=== PATIENT | female | born 1960 | race African-American/Black ===

== ENCOUNTER → 2016-09-30 | Outpatient (CLI) | payer OTHER ==
[~2016-09-30] MED LIST: ADVA250A INH; AMLO10TA2 PO; CYCL1TAB29 PO; METH125I2 IM; NAPR500T PO; TRAZ100T4 PO; VENTAER INH
== END ==
LOC: CLAB 07:48
PROVIDERS: ATTEND Family Medicine
DX: R10.812 Left upper quadrant abdominal tenderness (principal)
CPT/HCPCS: 36415; 83690

== ENCOUNTER 2017-04-10 12:40 | Emergency (ER) | payer OTHER ==
[~2017-04-10] VITALS: Ht 172.7 cm; Wt 45.0 kg
[~2017-04-10 12:40] MED LIST changes: -METH125I2 IM
[2017-04-10 12:50] VITALS: BP 132/87; PULSE 82; RESP 16; TEMP 97.7; O2SAT 100
--- NOTE | 2017-04-10 13:11 | PD ---
HPI Chief Complaint: Dizziness Time Seen by Provider: 15:40 Travel History International Travel<30 days: No Contact w/Intl Traveler<30days: No Traveled to known affect area: No History of Present Illness HPI 57- year old female brought by [facility] to the ED presenting with shortness of breath. Per nurse, [facility] was called and when they found her she had a heart rate of 140 and rapid breathing. Her vitals here are normal. She reports she has had trouble breathing for the past 3 days related to anxiety. She denies any triggering event to her anxiety. She denies any chest pain, N/V/D, constipation , or difficulty with urination. Patient has a history of COPD, Grave's Disease, and alcoholism. She denies any pain at this time. She takes nothing for anxiety. She does have a history of alcohol abuse and does appear to be intoxicated at this time. Shortness of breath with exertion. Otherwise she has no symptoms. No chest pain. No congestion. She's been compliant with her medications per patient. PFSH Past Medical History Arthritis: Yes Asthma: No Autoimmune Disease: No Blood Disorders: No Anxiety: Yes Depression: Yes Heart Rhythm Problems: No Cancer: No Cardiovascular Problems: Yes High Cholesterol: No Chemotherapy: No Chest Pain: Yes Congestive Heart Failure: No COPD: No Cerebrovascular Accident: No Diabetes: No Diminished Hearing: No Endocrine: No GERD: No Glaucoma: No Gout: Yes Genitourinary: No Headaches: Yes Hepatitis: No Hiatal Hernia: No Hypertension: Yes Immune Disorder: No Implanted Vascular Access Dvce: Yes Kidney Stones: No Musculoskeletal: Yes Neurologic: Yes Psychiatric: Yes Reproductive: No Respiratory: Yes Immunizations Current: Yes Migraines: Yes Myocardial Infarction: No Radiation Therapy: No Renal Failure: No Seizures: No Sickle Cell Disease: No Sleep Apnea: No Thyroid Disease: No Ulcer: No ?: Not Menopausal: Yes : 7 Para: 5 Tubal Ligation: Yes Past Surgical History Abdominal Surgery: Yes (ABDOMINAL HERNIA) AICD: No Appendectomy: No Arteriovenous Shunt: No Body Medical Devices: STATES SHE HAS A "PATCH" IN ABDOMEN FROM HERNIA SURGERY Cholecystectomy: No Ear Surgery: No Endocrine Surgery: No Eye Surgery: No Genitourinary Surgery: No Gynecologic Surgery: Yes (BREAST MASS REMOVED-LEFT ) Insulin Pump: No Joint Replacement: No Oral Surgery: No Pacemaker: No Thoracic Surgery: No Other Surgery: Yes (hernia repair ) Social History Alcohol Use: Yes (OCC) Tobacco Use: Yes (/2 PPD) Substance Use: No Allergies-Medications (Allergen,Severity, Reaction): Coded Allergies: No Known Allergies (Verified , 04/10/17) Reported Meds & Prescriptions Reported Meds & Active Scripts Active Flexeril (Cyclobenzaprine HCl) 10 Mg Tab 10 Mg PO TID Amlodipine (Amlodipine Besylate) 10 Mg Tab 10 Mg PO DAILY Ventolin Hfa 18 GM Inh (Albuterol Sulfate) 90 Mcg/Act Aer 2 Puff INH Q4-6H PRN Advair Diskus Inh (Fluticasone-Salmeterol Inh) 250-50 Mcg/Blist Aer 1 Puff INH BID Rinse mouth after use. Trazodone (Trazodone HCl) 100 Mg Tab 100 Mg PO HS Reported Naproxen 500 Mg Tab 500 Mg PO BID Review of Systems General / Constitutional: No: Fever, Chills, Weight Gain, Weight Loss, Other Eyes: No: Diploplia, Blurred Vision, Photophobia, Drainage, Redness, Foreign Body Sensation, Pain, Tearing, Blind Spots, Visual changes, Blindness, Other HENT: No: Headaches, Vertigo, Lightheadedness, Sore Throat, Rhinitis, Rhinorrhea, Congestion, Nosebleed, Neck Stiffness, Neck Pain, Masses, Gingival Bleeding, Dental Difficulties, Ear Discharge, Earache, Other Cardiovascular: No: Chest Pain or Discomfort, Palpitations, Irregular Rhythm, Tachycardia, Diaphoresis, Syncope, Dyspnea on exertion, Varicosities, Edema, Cyanosis, Varicosities, Phlebitis, Claudication, Other Respiratory: Positive: Shortness of Breath, No: Cough, Wheezing, Sneezing, Orthopnea, Hemoptysis, Stridor, Night Sweats, Pleuritic Pain, Other Gastrointestinal: No: Nausea, Vomiting, Diarrhea, Abdominal Pain, Hematemesis, Hematochezia, Constipation, Changes in Bowel Habits, Indigestion, Dysphagia, Loss of Appetite, Other Genitourinary: No: Urgency, Frequency, Dysuria, Nocturia, Hematuria, Decreased Urinary Output, Oliguria, Hesitancy, Dribbling, Incontinence, Pelvic Pain, Flank Pain, Dyspareunia, Discharge, Dysmenorrhea, Menorrhagia, Metorrhagia, Vaginal Bleeding, Other Musculoskeletal: No: Myalgias, Arthralgias, Limited ROM, Weakness, Cramping, Edema, Pain, Atrophy, Other Skin: No Rash, No Itching, No Dryness, No Lumps, No Hives, No Change in Pigmentation, No Change in nails, No Alopecia, No Lesions, No Breast Lumps, No Breast Tenderness, No Breast Swelling, No Other Neurologic: No: Weakness, Dizziness, Syncope, Focal Abnormalities, Coordination Problem, Tremor, Ataxia, Headache, Change in Mentation, Slurred Speech, Paresthesia, Incontinence, Seizures, Sensory Disturbance, Other Psychiatric: Positive: Anxiety Physical Exam Narrative GENERAL: SKIN: Warm and dry. HEAD: Atraumatic. Normocephalic. EYES: Pupils equal and round. No scleral icterus. No injection or drainage. ENT: No nasal bleeding or discharge. Mucous membranes pink and moist. Tongue is midline. No uvula deviation. NECK: Trachea midline. No JVD. CARDIOVASCULAR: Regular rate and rhythm. No murmurs, S3, S4. RESPIRATORY: No accessory muscle use. Clear to auscultation. Breath sounds equal bilaterally. GASTROINTESTINAL: Abdomen soft, non-tender, nondistended. Hepatic and splenic margins not palpable. MUSCULOSKELETAL: Extremities without clubbing, cyanosis, or edema. No obvious deformities. Range of motion of the upper and lower extremities bilaterally. 2 + pulses bilaterally. NEUROLOGICAL: Awake and alert. No obvious cranial nerve deficits. Motor grossly within normal limits. Five out of 5 muscle strength in the arms and legs. Normal speech. PSYCHIATRIC: Patient appears relaxed until beginning physical exam. Data Data Last Documented VS Vital Signs Date Time Temp Pulse Resp B/P Pulse Ox O2 Delivery O2 Flow Rate FiO2 04/10/17 13:29 100 Room Air 04/10/17 12:54 82 18 04/10/17 12:50 97.7 132/87 Orders Electrocardiogram (04/10/17 13:00) Complete Blood Count With Diff (04/10/17 13:00) Basic Metabolic Panel (Bmp) (04/10/17 13:00) Troponin I (04/10/17 13:00) Urinalysis - C+S If Indicated (04/10/17 13:00) Magnesium (Mg) (04/10/17 13:00) Thyroid Stimulating Hormone (04/10/17 13:00) Chest, Single Ap (04/10/17 13:00) Iv Access Insert/Monitor (04/10/17 13:00) Ecg Monitoring (04/10/17 13:00) Oximetry (04/10/17 13:00) Lorazepam Inj (Ativan Inj) (04/10/17 13:15) Alcohol (Ethanol) (04/10/17 13:31) Methylprednisolone So Succ Inj (Solumedr (04/10/17 13:45) Albuterol Neb (Albuterol Neb) (04/10/17 13:45) Urine Culture (04/10/17 13:43) Thiamine Inj (Thiamine Inj) (04/10/17 15:45) Labs Laboratory Tests Test 04/10/17 04/10/17 13:30 13:43 White Blood Count 4.8 TH/MM3 Red Blood Count 3.35 MIL/MM3 Hemoglobin 12.0 GM/DL Hematocrit 34.0 % Mean Corpuscular Volume 101.7 FL Mean Corpuscular Hemoglobin 35.9 PG Mean Corpuscular Hemoglobin 35.3 % Concent Red Cell Distribution Width 15.3 % Platelet Count 164 TH/MM3 Mean Platelet Volume 8.4 FL Neutrophils (%) (Auto) 66.8 % Lymphocytes (%) (Auto) 19.5 % Monocytes (%) (Auto) 11.8 % Eosinophils (%) (Auto) 0.6 % Basophils (%) (Auto) 1.3 % Neutrophils # (Auto) 3.2 TH/MM3 Lymphocytes # (Auto) 0.9 TH/MM3 Monocytes # (Auto) 0.6 TH/MM3 Eosinophils # (Auto) 0.0 TH/MM3 Basophils # (Auto) 0.1 TH/MM3 CBC Comment DIFF FINAL Differential Comment Sodium Level 131 MEQ/L Potassium Level 3.4 MEQ/L Chloride Level 96 MEQ/L Carbon Dioxide Level 22.2 MEQ/L Anion Gap 13 MEQ/L Blood Urea Nitrogen 2 MG/DL Creatinine 0.54 MG/DL Estimat Glomerular Filtration 140 ML/MIN Rate Random Glucose 72 MG/DL Calcium Level 8.6 MG/DL Magnesium Level 2.0 MG/DL Troponin I LESS THAN 0.02 NG/ML Thyroid Stimulating Hormone 0.556 uIU/ML 3rd Gen Ethyl Alcohol Level 279 MG/DL Urine Color LIGHT-YELLOW Urine Turbidity CLEAR Urine pH 5.5 Urine Specific [place] 1.002 Urine Protein NEG mg/dL Urine Glucose (UA) NEG mg/dL Urine Ketones TRACE mg/dL Urine Occult Blood NEG Urine Nitrite POS Urine Bilirubin NEG Urine Urobilinogen LESS THAN 2.0 MG/DL Urine Leukocyte Esterase NEG Urine RBC LESS THAN 1 /hpf Urine WBC LESS THAN 1 /hpf Urine Squamous Epithelial 1 /hpf Cells Microscopic Urinalysis Comment CULTURE INDICATED MDM Medical Decision Making Medical Screen Exam Complete: Yes Emergency Medical Condition: Yes Medical Record Reviewed: Yes Interpretation(s) CBC & BMP Diagram 04/10/17 13:30 troponin and CKMB negative Last Impressions Chest X-Ray 04/10/17 1300 Signed Impressions: Service Date/Time: April 13:41 - CONCLUSION: 1. Mild basilar atelectasis. Tortuous aorta. No significant effusion. Ritchie Corcoran MD EKG shows sinus rhythm with no sign of acute ischemia or arrhythmia read by me and attending. Alcohol level in the 200s Urine for the most part negative. Differential Diagnosis Anxiety Attack Hyperthyroidism COPD exacerbation alcohol intoxication Narrative Course 57-year-old male that presents to the ED for evaluation of shortness of breath. Patient was properly examined and was found to have signs and symptoms consistent with appears to be possible anxiety versus COPD. Patient does appear to be intoxicated and exam so history and exam is somewhat difficult. Imaging and labs were done. Everything came back negative except for alcohol level in the 200s. Case was discussed in my attending Dr Cobos who evaluated the patient and agrees with plan. At this time patient will be given a prescription for albuterol inhaler and prednisone. Told to follow with PCP. See ED worsening symptoms. She will be discharged once medically sober or she has a responsible adult who is not sober and can pick her up. Diagnosis Primary Impression: COPD (chronic obstructive pulmonary disease) Qualified Code: J41.0 - Simple chronic bronchitis Patient Instructions: General Instructions Additional Instructions: Take medications as prescribed. Stop drinking alcohol. Follow up with PCP. See ED if worsening symptoms. Med/Other Pt SpecificInfo: Prescription(s) given Disposition: 01 DISCHARGE HOME Condition: Stable Rah Willis Apr 10, 2017 13:11
[2017-04-10] MEDS ORDERED: LORazepam 2 MG/ML VIAL IV PUSH ONE (13:15)
[2017-04-10 13:29] VITALS: O2SAT 100
[2017-04-10] MEDS ORDERED: methylPREDNISolone SOD SUCC 125 MG/2 ML VIAL IV PUSH ONE (13:45)
[2017-04-10] MEDS ORDERED: RESP: ALBUTEROL 2.5 MG/3 ML NEB (SCH) INH ONE (13:45)
[2017-04-10 14:18] LABS: BLOOD, URINE NEG (NEG); GLUCOSE,URINE NEG (NEG); KETONE, URINE TRACE mg/dL (NEG); PH, URINE 5.5 (5.0-8.5); SQUAMOUS EPITHELIAL CELL URINE 1 /hpf (0-5); URINE COLOR LIGHT-YELLOW (YELLW/STRAW)
[2017-04-10 14:18] LABS: AUTOMATED NEUTROPHIL # 3.2 TH/MM3 (1.8-7.7); BASOPHIL # 0.1 TH/MM3 (0-0.2); BASOPHIL % 1.3 % (0.0-2.0); EOSINOPHIL % 0.6 % (0.0-4.0); HEMO FLAGS DIFF FINAL; LYMPH % 19.5 % (9.0-44.0); LYMPHOCYTE # 0.9 TH/MM3 (1.0-4.8); MEAN CELL VOLUME 101.7 FL (80.0-100.0); MEAN CORPUSCULAR HEMOGLOBIN 35.9 PG (27.0-34.0); MEAN CORPUSCULAR HGB CONC 35.3 % (32.0-36.0); MONO % 11.8 % (0.0-8.0); NEUT % 66.8 % (16.0-70.0); PLATELET COUNT 164 TH/MM3 (150-450); RED BLOOD COUNT 3.35 MIL/MM3 (4.00-5.30); RED CELL DISTRIBUTION WIDTH 15.3 % (11.6-17.2); WHITE BLOOD COUNT 4.8 TH/MM3 (4.0-11.0)
--- NOTE | 2017-04-10 14:18 | RADRPT ---
EXAM DATE/TIME: 04/10/2017 13:41 [facility] COMPARISON: CHEST SINGLE AP, September 04, 2016, 13:17. INDICATIONS : Short of breath and difficulty breathing. MEDICAL HISTORY : Hypertension. SURGICAL HISTORY : None. ENCOUNTER: Initial ACUITY: 3 days PAIN SCORE: 4/10 LOCATION: Bilateral chest FINDINGS: A single view of the chest demonstrates the lungs to be symmetrically aerated without evidence of mas s, infiltrate or effusion. Minimal basal atelectasis. Aorta is tortuous. CONCLUSION: 1. Mild basilar atelectasis. Tortuous aorta. No significant effusion. Ritchie Corcoran MD on April 10, 2017 at 14:15 Board Certified Radiologist. This report was verified electronically.
[2017-04-10 14:19] LABS: COMMENT (UR) CULTURE INDICATED; CULTURE IF INDICATED CULTURE INDICATED; NITRITE,URINE POS (NEG)
[2017-04-10 14:42] LABS: ANION GAP 13 MEQ/L (5-15); BICARBONATE 22.2 MEQ/L (21.0-32.0); BLOOD UREA NITROGEN 2 MG/DL (7-18); CHLORIDE 96 MEQ/L (98-107); GLOMERULAR FILTRATION RATE 140 ML/MIN (>89); POTASSIUM 3.4 MEQ/L (3.5-5.1); SODIUM (NA) 131 MEQ/L (136-145)
[2017-04-10] MEDS ORDERED: THIAMINE INJ 100 MG in SODIUM CHLORIDE 0.9% INJ 100 ML IV ONE (15:45)
[2017-04-10] MEDS ORDERED: CEPH-460 PO (15:48)
[2017-04-10] MEDS ORDERED: ALBUAER3 INH (15:48)
[2017-04-10] MEDS ORDERED: PRED20 PO (15:48)
--- NOTE | 2017-04-10 15:48 | PD ---
Physical Exam Narrative I, Dr. Cobos, have reviewed the advance practice practitioner's documentation and am in agreement, met with the patient face to face, made the diagnosis, and the medical decision making was done by me. *My assessment and Findings: Alcohol intoxication vs. COPD exacerbation vs. Pneumonia 57yo F with c/o sob when she walks. She is saturating at 100% on RA and does not appear distressed. Pt admits to drinking 5 beers. Denies any chest pain. States she is hungry and wants to eat. Currently no SOB. Lungs clear to auscultation bilaterally. Pt has history of COPD and alcohol abuse and was given methylprednisolone and albuterol neb. Labs reviewed, no leukocytosis. MCV 101.7, likely secondary to chronic alcohol abuse. Mild hyponatremia at 131. Troponin negative. TSH normal. Blood alcohol 279. UA showed positive nitrite. Will treat for UTI. CXR showed mild basilar atelectasis. No significant effusion. Data Data Last Documented VS Vital Signs Date Time Temp Pulse Resp B/P Pulse Ox O2 Delivery O2 Flow Rate FiO2 04/10/17 13:29 100 Room Air 04/10/17 12:54 82 18 04/10/17 12:50 97.7 132/87 Orders Electrocardiogram (04/10/17 13:00) Complete Blood Count With Diff (04/10/17 13:00) Basic Metabolic Panel (Bmp) (04/10/17 13:00) Troponin I (04/10/17 13:00) Urinalysis - C+S If Indicated (04/10/17 13:00) Magnesium (Mg) (04/10/17 13:00) Thyroid Stimulating Hormone (04/10/17 13:00) Chest, Single Ap (04/10/17 13:00) Iv Access Insert/Monitor (04/10/17 13:00) Ecg Monitoring (04/10/17 13:00) Oximetry (04/10/17 13:00) Lorazepam Inj (Ativan Inj) (04/10/17 13:15) Alcohol (Ethanol) (04/10/17 13:31) Methylprednisolone So Succ Inj (Solumedr (04/10/17 13:45) Albuterol Neb (Albuterol Neb) (04/10/17 13:45) Urine Culture (04/10/17 13:43) Thiamine Inj (Thiamine Inj) (04/10/17 15:45) Labs Laboratory Tests Test 04/10/17 04/10/17 13:30 13:43 White Blood Count 4.8 TH/MM3 Red Blood Count 3.35 MIL/MM3 Hemoglobin 12.0 GM/DL Hematocrit 34.0 % Mean Corpuscular Volume 101.7 FL Mean Corpuscular Hemoglobin 35.9 PG Mean Corpuscular Hemoglobin 35.3 % Concent Red Cell Distribution Width 15.3 % Platelet Count 164 TH/MM3 Mean Platelet Volume 8.4 FL Neutrophils (%) (Auto) 66.8 % Lymphocytes (%) (Auto) 19.5 % Monocytes (%) (Auto) 11.8 % Eosinophils (%) (Auto) 0.6 % Basophils (%) (Auto) 1.3 % Neutrophils # (Auto) 3.2 TH/MM3 Lymphocytes # (Auto) 0.9 TH/MM3 Monocytes # (Auto) 0.6 TH/MM3 Eosinophils # (Auto) 0.0 TH/MM3 Basophils # (Auto) 0.1 TH/MM3 CBC Comment DIFF FINAL Differential Comment Sodium Level 131 MEQ/L Potassium Level 3.4 MEQ/L Chloride Level 96 MEQ/L Carbon Dioxide Level 22.2 MEQ/L Anion Gap 13 MEQ/L Blood Urea Nitrogen 2 MG/DL Creatinine 0.54 MG/DL Estimat Glomerular Filtration 140 ML/MIN Rate Random Glucose 72 MG/DL Calcium Level 8.6 MG/DL Magnesium Level 2.0 MG/DL Troponin I LESS THAN 0.02 NG/ML Thyroid Stimulating Hormone 0.556 uIU/ML 3rd Gen Ethyl Alcohol Level 279 MG/DL Urine Color LIGHT-YELLOW Urine Turbidity CLEAR Urine pH 5.5 Urine Specific [place] 1.002 Urine Protein NEG mg/dL Urine Glucose (UA) NEG mg/dL Urine Ketones TRACE mg/dL Urine Occult Blood NEG Urine Nitrite POS Urine Bilirubin NEG Urine Urobilinogen LESS THAN 2.0 MG/DL Urine Leukocyte Esterase NEG Urine RBC LESS THAN 1 /hpf Urine WBC LESS THAN 1 /hpf Urine Squamous Epithelial 1 /hpf Cells Microscopic Urinalysis Comment CULTURE INDICATED MDM Supervised Visit with SHARDA: Yes Interpretation(s) EKG: NSR 85bpm. Normal axis. No ST segment elevation or depression. Diagnosis Primary Impression: Alcohol abuse Additional Impression: UTI (urinary tract infection) Qualified Code: N39.0 - Urinary tract infection without hematuria, site unspecified Taylor Cobos DO Apr 10, 2017 15:48
--- NOTE | 2017-04-11 11:13 | EKG ---
Date Performed: 04/10/2017 Time Performed: 13:11:13 PTAGE: 57 years EKG: Sinus rhythm NORMAL ECG Since PREVIOUS TRACING , no significant change noted PREVIOUS TRACIN09/04/2016 21.28 DOCTOR: Vidal Ramirez Interpretating Date/Time 04/11/2017 11:12:38
== END 2017-04-10 16:31 | disposition home or self-care (01) ==
LOC: NEPD 12:40
DX: F10.10 Alcohol abuse, uncomplicated (principal); N39.0 Urinary tract infection, site not specified; B96.20 Unspecified Escherichia coli [E. coli] as the cause of diseases classified elsewhere; R06.02 Shortness of breath; J44.9 Chronic obstructive pulmonary disease, unspecified; E05.00 Thyrotoxicosis with diffuse goiter without thyrotoxic crisis or storm; M10.9 Gout, unspecified; I10 Essential (primary) hypertension; Z79.899 Other long term (current) drug therapy
CPT/HCPCS: 71010; 80048; 80307; 81001; 83735; 84443; 84484; 85025; 87077; 87086; 87186; 93005; 94664; 96374; 96375; 99285; J2060; J2930; J3411; J7613

== ENCOUNTER 2017-06-30 10:01 | Emergency (ER) | payer OTHER ==
[~2017-06-30] VITALS: Ht 172.7 cm; Wt 52.0 kg
[~2017-06-30 10:01] MED LIST changes: +ALBUAER3 INH; +CEPH-460 PO; +PRED20 PO
[2017-06-30 10:03] VITALS: BP 134/77; PULSE 81; RESP 16; TEMP 98.9; O2SAT 95
[2017-06-30] MEDS ORDERED: IBUPROFEN 600 MG TAB PO ONE (10:15)
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
--- NOTE | 2017-06-30 11:01 | RADRPT ---
EXAM DATE/TIME: 06/30/2017 10:31 [facility] COMPARISON: KNEE LEFT COMPLETE (4VWS), June 27, 2013, 8:46 (report only). INDICATIONS : Left knee pain after falling one week ago. MEDICAL HISTORY : Hypertension. Smoker. SURGICAL HISTORY : None. ENCOUNTER: Initial ACUITY: 1 week PAIN SCORE: 10/10 LOCATION: Left entire knee. FINDINGS: There is a horizontal lucency through the mid patella suggesting a nondisplaced fracture. There is f ullness and distention of the suprapatella bursa without fat fluid level. Prominent calcific area in the metaphysis of the distal femur and measures in excess of 4 cm; this appears similar to the descr iption on the prior report of a left knee radiographs in 2012. Proximal tibia and fibula are intact. CONCLUSION: 1. Nondisplaced horizontal fracture of the patella with associated knee effusion. 2. Chronic calcific or calcific lesion in the distal femur. Long Queen MD on June 30, 2017 at 10:57 Board Certified Radiologist. This report was verified electronically.
--- NOTE | 2017-06-30 11:01 | RADRPT ---
EXAM DATE/TIME: 06/30/2017 10:36 [facility] COMPARISON: No previous studies available for comparison. INDICATIONS : Right shoulder pain after falling one week ago. MEDICAL HISTORY : Hypertension. Smoker. SURGICAL HISTORY : None. ENCOUNTER: Initial ACUITY: 1 week PAIN SCORE: 10/10 LOCATION: Right entire shoulder. FINDINGS: Multiple view examination of the right shoulder demonstrates no evidence of fracture or dislocation. The glenohumeral and acromioclavicular joints are maintained. There is normal range of motion betwe en internal and external rotation. Bony mineralization is normal. CONCLUSION: No evidence of fracture or dislocation. Long Queen MD on June 30, 2017 at 10:59 Board Certified Radiologist. This report was verified electronically.
--- NOTE | 2017-06-30 11:13 | RADRPT ---
EXAM DATE/TIME: 06/30/2017 10:47 [facility] COMPARISON: No previous studies available for comparison. INDICATIONS : Right forearm pain after falling one week ago. MEDICAL HISTORY : Hypertension. Smoker. SURGICAL HISTORY : None. ENCOUNTER: Initial ACUITY: 1 week PAIN SCORE: 10/10 LOCATION: Right posterior forearm. FINDINGS: Two view examination of the right forearm demonstrates no evidence of fracture or dislocation. Incid ental note of unfused tip of the ulnar styloid, well-corticated. Bony mineralization is normal. The soft tissue structures are intact. No radiopaque foreign bodies. CONCLUSION: No evidence of recent bony injury. Long Queen MD on June 30, 2017 at 11:10 Board Certified Radiologist. This report was verified electronically.
[2017-06-30] MEDS ORDERED: SYMB80AE INH (11:19)
[2017-06-30] MEDS ORDERED: HYDR-3534 PO (11:58)
[2017-07-03] MEDS ORDERED: METH500T3 PO (09:24)
== END 2017-06-30 12:51 | disposition home or self-care (01) ==
LOC: NEPD 10:01
DX: S82.092A Other fracture of left patella, initial encounter for closed fracture (principal); S43.401A Unspecified sprain of right shoulder joint, initial encounter; M79.631 Pain in right forearm; V19.9XXA Pedal cyclist (driver) (passenger) injured in unspecified traffic accident, initial encounter
CPT/HCPCS: 73030; 73090; 73564; 99284; E0113; L1830

== ENCOUNTER → 2017-08-21 | Outpatient (CLI) | payer OTHER ==
[~2017-08-21] MED LIST changes: -ADVA250A INH; -ALBUAER3 INH; -CEPH-460 PO; +CYCL10TA PO; -CYCL1TAB29 PO; +HYDR-3534 PO; +MACR100C2 PO; +METH500T3 PO; +METR-1 PO; -NAPR500T PO; +NAPR500T2 PO; -PRED20 PO; +SYMB80AE INH; -TRAZ100T4 PO
--- NOTE | 2017-08-21 13:39 | RADRPT ---
EXAM DATE/TIME: 08/21/2017 11:28 [facility] COMPARISON: KNEE LEFT COMPLETE (4VWS), June 30, 2017, 10:31. INDICATIONS : Patient states she fell on left knee 3months ago. Pain under patella. MEDICAL HISTORY : Hypertension. SURGICAL HISTORY : None. ENCOUNTER: Initial ACUITY: 3 months PAIN SCORE: 5/10 LOCATION: Left Knee FINDINGS: Four view examination of the left knee again demonstrates a serpiginous well-defined intramedullary c alcified lesion like reflecting an enchondroma or bone infarct. Interval bony remodeling through the mid patella corresponding to healing fracture. No definite new acute bony fractures are identified. N o significant effusion. Soft tissues are unremarkable. CONCLUSION: 1. Stable chronic low grade calcified lesion in the distal femur. 2. Healing patellar fracture noted on prior exam. 3. No acute bony fracture or dislocation. Krystian Fernandez MD on August 21, 2017 at 13:32 Board Certified Radiologist. This report was verified electronically.
== END ==
LOC: HRAD 11:08
DX: M25.562 Pain in left knee (principal)
CPT/HCPCS: 73564

== ENCOUNTER 2017-09-02 13:53 | Emergency (ER) | payer OTHER ==
[~2017-09-02 13:53] MED LIST changes: -MACR100C2 PO; -METR-1 PO
[2017-09-02 13:55] VITALS: BP 144/77; PULSE 104; RESP 14; TEMP 98.4; O2SAT 99
[2017-09-02] MEDS ORDERED: IBUPROFEN 600 MG TAB PO ONE (14:30)
--- NOTE | 2017-09-02 14:34 | PD ---
HPI Chief Complaint: Medical Clearance Time Seen by Provider: 14:17 Travel History International Travel<30 days: No Contact w/Intl Traveler<30days: No Traveled to known affect area: No History of Present Illness HPI 57-year-old female presents to the emergency department for 2 separate issues. First, the patient states she has had left knee pain since she suffered a patella fracture in June. According to our records, she recently had an x- ray on August 21, 2017 which showed stable chronic low-grade calcified lesion the distal femur, healing patellar fracture noted on prior exam, no acute bony fracture or dislocation. Patient denies any injury since then. She states she was a given Lortab for her pain and has since ran out would like more Lortab. Patient also states that she has had abnormal vaginal discharge for the past 2 weeks. She states her discharge is yellow which is new for her. She denies any pelvic pain. No urinary symptoms. No fevers or chills. No chest pain or shortness of breath. She reports history of COPD and hypertension. She reports one sexual partner in the past year. Moderate severity. No exacerbating alleviating factors. PFSH Past Medical History Arthritis: Yes Asthma: No Autoimmune Disease: No Blood Disorders: No Anxiety: Yes Depression: Yes Heart Rhythm Problems: No Cancer: No Cardiovascular Problems: Yes (HTN) High Cholesterol: No Chemotherapy: No Chest Pain: Yes Congestive Heart Failure: No COPD: No Cerebrovascular Accident: No Diabetes: No Diminished Hearing: No Endocrine: No GERD: No Glaucoma: No Gout: Yes Genitourinary: No Headaches: Yes Hepatitis: No Hiatal Hernia: No Hypertension: Yes Immune Disorder: No Implanted Vascular Access Dvce: Yes Kidney Stones: No Musculoskeletal: Yes Neurologic: Yes Psychiatric: Yes Reproductive: No Respiratory: Yes Immunizations Current: Yes Migraines: Yes Myocardial Infarction: No Radiation Therapy: No Renal Failure: No Seizures: No Sickle Cell Disease: No Sleep Apnea: No Thyroid Disease: No Ulcer: No Menopausal: Yes : 7 Para: 5 Tubal Ligation: Yes Past Surgical History Abdominal Surgery: Yes (ABDOMINAL HERNIA) AICD: No Appendectomy: No Arteriovenous Shunt: No Body Medical Devices: STATES SHE HAS A "PATCH" IN ABDOMEN FROM HERNIA SURGERY Cholecystectomy: No Ear Surgery: No Endocrine Surgery: No Eye Surgery: No Genitourinary Surgery: No Gynecologic Surgery: Yes (BREAST MASS REMOVED-LEFT ) Insulin Pump: No Joint Replacement: No Oral Surgery: No Pacemaker: No Thoracic Surgery: No Other Surgery: Yes (hernia repair ) Social History Alcohol Use: Yes (OCC) Tobacco Use: Yes (1/2 PPD) Substance Use: No Allergies-Medications (Allergen,Severity, Reaction): Coded Allergies: No Known Allergies (Verified Adverse Reaction, Unknown, 09/02/17) Reported Meds & Prescriptions Reported Meds & Active Scripts Active Methocarbamol 500 Mg Tab 500 Mg PO QID Amlodipine (Amlodipine Besylate) 10 Mg Tab 10 Mg PO DAILY Ventolin Hfa 18 GM Inh (Albuterol Sulfate) 90 Mcg/Act Aer 2 Puff INH Q4-6H PRN Reported Symbicort Inh (Budesonide/Formoterol Fumarate) Unknown Strength Aero 1 Puff INH Q12HR Review of Systems Except as stated in HPI: all other systems reviewed are Neg Physical Exam Narrative GENERAL: Well-nourished, well-developed female patient, afebrile. SKIN: Focused skin assessment warm/dry. HEAD: Normocephalic. Atraumatic. EYES: No scleral icterus. No injection or drainage. NECK: Supple, trachea midline. No JVD or lymphadenopathy. CARDIOVASCULAR: Regular rate and rhythm without murmurs, gallops, or rubs. RESPIRATORY: Breath sounds equal bilaterally. No accessory muscle use. Lungs sounds are clear to auscultation. GASTROINTESTINAL: Abdomen soft, non-tender, nondistended. MUSCULOSKELETAL: No cyanosis, or edema. No swelling over left knee. She has flexion and extension without pain or stiffness. BACK: Nontender without obvious deformity. No CVA tenderness. GENITOURINARY: Normal external genitalia without lesions or erythema. Vaginal vault with copious amounts of yellow vaginal discharge. Cervical os was closed . No cervical motion tenderness. Uterus nontender and nonenlarged. Bilateral adnexa nontender without masses. This exam was done with RN at bedside. Data Data Last Documented VS Vital Signs Date Time Temp Pulse Resp B/P (MAP) Pulse Ox O2 Delivery O2 Flow Rate FiO2 09/02/17 15:42 16 09/02/17 13:55 98.4 104 144/77 (99) 99 Orders Orders Gc And Chlamydia Pcr (09/02/17 14:25) Wet Prep Profile (09/02/17 14:25) Ibuprofen (Motrin) (09/02/17 14:30) Urinalysis - C+S If Indicated (09/02/17 14:34) Urine Culture (09/02/17 14:45) Azithromycin Powd Pack (Zithromax Powd P (09/02/17 16:00) Ceftriaxone Inj (Rocephin Inj) (09/02/17 16:00) Lidocaine 1% Inj (50 Ml) (Xylocaine 1% I (09/02/17 16:00) Labs Laboratory Tests Test 09/02/17 14:45 Urine Color YELLOW Urine Turbidity HAZY Urine pH 5.5 Urine Specific [place] 1.008 Urine Protein TRACE mg/dL Urine Glucose (UA) NEG mg/dL Urine Ketones NEG mg/dL Urine Occult Blood NEG Urine Nitrite POS Urine Bilirubin NEG Urine Urobilinogen LESS THAN 2.0 MG/DL Urine Leukocyte Esterase LARGE Urine RBC 12 /hpf Urine WBC 31 /hpf Urine Squamous Epithelial Cells 2 /hpf Urine Bacteria MOD /hpf Microscopic Urinalysis Comment CULTURE INDICATED Clue Cells (Wet Prep) PRESENT Vaginal Trichomonas (Wet Prep) PRESENT Vaginal Yeast (Wet Prep) NS MDM Medical Decision Making Medical Screen Exam Complete: Yes Emergency Medical Condition: Yes Medical Record Reviewed: Yes Differential Diagnosis Vaginitis versus cervicitis versus chronic knee pain Narrative Course 57-year-old female presents to the emergency department for evaluation of abnormal vaginal discharge for 2 weeks as well as left knee pain since June when she suffered a patella fracture. No new injury. Reviewed recent x-ray which showed no acute fracture. Patient states she is out of Lortab would like a refill. I discussed that we do not give narcotic pain medication for injuries that are 2 months old. She is given ibuprofen 600 mg by mouth. Patient agrees to pelvic exam. UA is ordered and pending. Wet prep is positive for clue cells and Trichomonas. UA shows positive nitrate , large leukocyte esterase, 31 WBC. Patient is given Rocephin 250 mg IM, azithromycin 1 g by mouth. She'll be discharged prescription for Macrobid for UTI and Flagyl. She is instructed not drink alcohol while on the Flagyl. She verbalizes understanding. She is instructed to have her sexual partner tested and treated before resuming sex. Diagnosis Primary Impression: Cervicitis Additional Impression: UTI (urinary tract infection) Qualified Codes: N30.00 - Acute cystitis without hematuria Referrals: Primary Care Physician call for appointment Patient Instructions: Cervicitis (ED), General Instructions Additional Instructions: Take Macrobid as directed until gone for UTI. Take Flagyl as directed until gone. Do not drink alcohol while on this medication. Have your sexual partner tested and treated before resuming sex. Follow-up with your primary care physician. Return to the emergency department for any acute worsening of symptoms. Med/Other Pt SpecificInfo: Prescription(s) given Scripts Metronidazole (Flagyl) 500 Mg Tab 500 MG PO BID for Infection for 7 Days, #14 TAB 0 Refills Prov: Beatriz Lang 09/02/17 Nitrofurantoin Monohydrate Macrocrystals (Macrobid) 100 Mg Capsule 100 MG PO BID for Infection for 7 Days, #14 CAP 0 Refills Prov: Beatriz Lang 09/02/17 Disposition: 01 DISCHARGE HOME Condition: Stable Beatriz Lang Sep 02, 2017 14:34
[2017-09-02 15:31] LABS: BACTERIA, URINE MOD /hpf; BILIRUBIN, URINE NEG (NEG); BLOOD, URINE NEG (NEG); GLUCOSE,URINE NEG (NEG); KETONE, URINE NEG (NEG); NITRITE,URINE POS (NEG); PH, URINE 5.5 (5.0-8.5); SQUAMOUS EPITHELIAL CELL URINE 2 /hpf (0-5); URINE COLOR YELLOW (YELLW/STRAW); URINE LEUKOCYTE ESTERASE LARGE (NEG)
[2017-09-02 15:42] VITALS: RESP 16
[2017-09-02] MEDS ORDERED: cefTRIAXone 250 MG VIAL IM ONE (16:00)
[2017-09-02] MEDS ORDERED: LIDOCAINE HCL 1% 50 ML VIAL IM ONE (16:00)
[2017-09-02] MEDS ORDERED: AZITHROMYCIN PWD FOR SUSP 1 GM PACKET PO ONE (16:00)
[2017-09-02] MEDS ORDERED: MACR100C2 PO (16:03)
[2017-09-02] MEDS ORDERED: METR-1 PO (16:03)
[2017-09-02 16:12] VITALS: BP 124/77; TEMP 97.8
== END 2017-09-02 16:12 | disposition home or self-care (01) ==
LOC: NEPD 13:53
DX: N30.00 Acute cystitis without hematuria (principal); B96.20 Unspecified Escherichia coli [E. coli] as the cause of diseases classified elsewhere; I10 Essential (primary) hypertension; F17.200 Nicotine dependence, unspecified, uncomplicated; S82.002D Unspecified fracture of left patella, subsequent encounter for closed fracture with routine healing; X58.XXXD Exposure to other specified factors, subsequent encounter
CPT/HCPCS: 81001; 87077; 87086; 87186; 87210; 87491; 87591; 96372; 99284; J0696

== ENCOUNTER 2017-09-29 12:30 | Emergency (ER) | payer OTHER | END 2017-09-29 14:30 | disposition left against medical advice (07) | LOC: NEPK 12:30 | DX: M25.562 Pain in left knee (principal) | CPT/HCPCS: 99281 ==